=== PATIENT | female | born 1985 | race Two or more races ===

== ENCOUNTER 2018-02-28 12:45 | Emergency (ER) | payer SELFPAY ==
[~2018-02-28] VITALS: Ht 167.6 cm; Wt 64.9 kg
[2018-02-28 14:20] VITALS: BP 122/77
== END 2018-02-28 14:35 | disposition home or self-care (01) ==
LOC: ER 12:52
DX: S70.11XA Contusion of right thigh, initial encounter (principal); S80.211A Abrasion, right knee, initial encounter; F07.81 Postconcussional syndrome; R42 Dizziness and giddiness; W01.0XXA Fall on same level from slipping, tripping and stumbling without subsequent striking against object, initial encounter; Y93.89 Activity, other specified; Y92.89 Other specified places as the place of occurrence of the external cause; Y99.8 Other external cause status
CPT/HCPCS: 99282; A4606; Z7610